=== PATIENT | female | born 1990 | race Caucasian/White ===

== ENCOUNTER 2016-05-04 20:36 | Emergency (ER) | payer OTHER ==
--- NOTE | 2016-05-04 22:53 | ED ---
Calvin Foote Billy, scribed for Bruno Mccollum MD on 05/04/16 at 2231 . Abdominal Pain/Female - HPI Summary HPI Summary: Patient is a 25 year-old female coming to [facility] presenting with constant, sharp LUQ pain since 1200 today. Severity 9/10. She reports nothing makes the pain better or worse. 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 She denies any N/V/D. She has felt generally unwell for the last several days. She has no other complaints at this time. - History of Current Complaint Chief Complaint: EDAbdPain Stated Complaint: ABD PAIN Time Seen by Provider: 05/04/16 22:16 Hx Obtained From: Patient Onset/Duration: Gradual Onset, Lasting Hours, Still Present Timing: Constant Severity Initially: Moderate Severity Currently: Moderate Pain Intensity: 9 Pain Scale Used: 0-10 Numeric Location: Discrete At: LUQ Radiates: No Character: Sharp Aggravating Factor(s): Nothing Alleviating Factor(s): Nothing Associated Signs and Symptoms: Negative: Nausea, Vomiting, Diarrhea Allergies/Adverse Reactions: Allergies Allergy/AdvReac Type Severity Reaction Status Date / Time No Known Allergies Allergy Verified 12/30/15 19:37 PMH/Surg Hx/FS Hx/Imm Hx Cardiovascular History: Denies: Hx Hypertension Psychiatric History: Reports: Hx Anxiety, Hx Eating Disorder - Anorexia in HS, Hx Community Mental Health Tx Denies: Hx of Violent Episodes Against Others Infectious Disease History: No Infectious Disease History: Denies: Traveled Outside the [place] in Last 30 Days - Family History Known Family History: Negative: Cardiac Disease, Hypertension, Diabetes - Social History Alcohol Use: None Substance Use Type: Reports: None Smoking Status (MU): Never Smoked Tobacco Review of Systems Negative: Fever Positive: Abdominal Pain. Negative: Vomiting, Diarrhea, Nausea All Other Systems Reviewed And Are Negative: Yes Physical Exam Triage Information Reviewed: Yes Vital Signs On Initial Exam: Initial Vitals Temp Pulse Resp BP Pulse Ox 97 F 86 18 148/79 100 05/04/16 20:38 05/04/16 20:38 05/04/16 20:38 05/04/16 20:38 05/04/16 20:38 Vital Signs Reviewed: Yes Appearance: Positive: No Pain Distress, Thin Skin: Positive: Warm Head/Face: Positive: Normal Head/Face Inspection Eyes: Positive: KAT ENT: Positive: Hearing grossly normal Neck: Positive: Supple Cardiovascular: Positive: RRR Abdomen Description: Positive: Nontender, No Organomegaly, Soft Bowel Sounds: Positive: Present Musculoskeletal: Positive: Strength/ROM Intact Neurological: Positive: Sensory/Motor Intact, Alert, Oriented to Person Place, Time Psychiatric: Positive: Affect/Mood Appropriate Diagnostics - Vital Signs Vital Signs Temp Pulse Resp BP Pulse Ox 05/04/16 21:34 98.2 F 83 16 126/64 100 05/04/16 20:38 97 F 86 18 148/79 100 - Laboratory Result Diagrams: 05/04/16 22:31 05/04/16 22:31 Lab Statement: Any lab studies that have been ordered have been reviewed, and results considered in the medical decision making process. Re-Evaluation - Re-Evaluation First Eval Re-Evaluation Time: 23:52 Change: Improved Comment: Plan for discharge discussed. Patient is agreeable. Abdominal Pain Fem Course/Dx - Diagnoses Provider Diagnoses: Abdominal pain Discharge - Discharge Plan Condition: Stable Disposition: HOME Patient Education Materials: Abdominal Pain (ED) Referrals: Reyes Munoz MD [Primary Care Provider] - The documentation as recorded by the Calvin putnam Billy accurately reflects the service I personally performed and the decisions made by me, Bruno Mccollum MD.
[2016-05-04] MEDS ORDERED: NS 0.9% 1000 ML* 1,000 ML IV ONE (22:57)
[2016-05-04 23:20] LABS: Hematocrit 40 % (35-47); Hemoglobin 13.5 g/dl (12.0-16.0); Mean Corpuscular HGB Conc 34 g/dl (31-36); Mean Corpuscular Hemoglobin 29 pg (27-31); Mean Corpuscular Volume 86 fL (80-97); Mean Platelet Volume 10 um3 (7.4-10.4); Red Blood Count 4.66 10^6/ul (4.0-5.4); Red Cell Distribution Width 14 % (10.5-15); White Blood Count 10.6 10^3/ul (3.5-10.8)
[2016-05-04 23:27] LABS: Mono Internal Control QC Line Present
[2016-05-04 23:33] LABS: ALT 10 U/L (7-52); AST 19 U/L (13-39); Albumin 4.5 g/dL (3.2-5.2); Alkaline Phosphatase 37 U/L (34-104); Anion Gap 5 mmol/L (2-11); BUN/Creatinine Ratio 14.9 (8-20); Blood Urea Nitrogen 10 mg/dL (6-24); C Reactive Protein 5.37 mg/L (< 5.00); CO2 Carbon Dioxide 32 mmol/L (22-32); Calcium 9.8 mg/dL (8.6-10.3); Chloride 103 mmol/L (101-111); EGFR African American 139.1 (>60); EGFR Non-African American 108.1 (>60); Globulin 3.3 g/dL (2-4); Glucose 99 mg/dL (70-100); Lipase 28 U/L (11.0-82.0); Potassium 3.5 mmol/L (3.5-5.0); Sodium 140 mmol/L (133-145); Total Protein 7.8 g/dL (6.4-8.9)
[2016-05-05 00:03] VITALS: BP 102/59
== END 2016-05-05 00:05 | disposition home or self-care (01) ==
LOC: ED 20:36
DX: R10.12 Left upper quadrant pain (principal)
CPT/HCPCS: 36415; 80053; 83605; 83690; 84702; 85025; 86140; 86308; 96360; 99282